=== PATIENT | male | born 1950 | race Caucasian/White ===

== ENCOUNTER 2021-10-21 21:39 | Inpatient (IN) | payer MEDICARE, OTHER ==
[2021-10-21 22:26] LABS: #Eosinphils 0.1 thou/uL (0.0-0.7); #Lymphocytes 0.6 thou/uL (1.20-3.40); #Monocytes 0.4 thou/uL (0.11-0.59); #Neutrophils 3.5 thou/uL (1.40-6.50); %Basophils 0.9 % (0.0-1.0); %Eosinophils 2.9 % (0.0-10.0); %Monocytes 8.4 % (0.0-10.0); %Neutrophils 74.8 % (42.0-75.0); Mean Corpuscular HGB CONC 35.3 g/dL (32.0-36.0); Mean Corpuscular Hemoglobin 34.1 pg (27.0-31.0); Mean Corpuscular Volume 96.5 fL (78.0-98.0); Platelet Count 153 thou/uL (130-400); RBC Distribution Width 12.2 % (11.5-14.5); Red Blood Cell (RBC) Count 1.76 mill/uL (4.70-6.10); White Blood Cell (WBC) Count 4.6 thou/uL (4.8-10.8)
[2021-10-21 22:40] LABS: ALT (SGPT) 7 U/L (8-55); AST (SGOT) 3 U/L (5-34); Albumin 4.1 g/dL (3.4-4.8); Alkaline Phosphatase 44 U/L (40-110); Anion Gap 26 mmol/L (10-20); Bilirubin, Total 0.4 mg/dL (0.2-1.2); Calc. Creatinine Clearance 0 mL/min (70-130); Calcium 6.9 mg/dL (7.8-10.44); Carbon Dioxide 11 mmol/L (23-31); Chloride 105 mmol/L (98-107); Globulin 3.6 g/dL (2.4-3.5); Glucose 134 mg/dL (83-110); Lipase 196 U/L (8-78); Potassium 4.5 mmol/L (3.5-5.1); Protein, Total 7.7 g/dL (5.8-8.1); Sodium 137 mmol/L (136-145)
[2021-10-21 22:54] LABS: BUN (Urea Nitrogen) 172 mg/dL (8.4-25.7)
[2021-10-21] MEDS ORDERED: Ondansetron PF 4 MG/2 ML Vial ONE (23:26)
[2021-10-22 00:22] LABS: Bilirubin Negative (Negative); Blood, Urine 1+ (Negative); Clarity Clear (Clear); Glucose, Urine (Dipstick) Normal (Negative); Ketone, Urine Negative (Negative); Leukocyte 500 Leu/uL (Negative); Nitrite Negative (Negative); Protein, Urine (Dipstick) 20 mg/dL (Neg-Trace); Specific Gravity, Urine 1.011 (1.002-1.036); Squamous Epithelial None Seen HPF (0-3); Urobilinogen Normal mg/dL (Less than 2); WBC/HPF Greater than 50 HPF (0-3)
[2021-10-22 00:24] LABS: Bacteria/HPF Rare-Few HPF (None Seen)
[2021-10-22] MEDS ORDERED: Acetaminophen 650 MG Suppository PR PRN (01:03)
[2021-10-22] MEDS ORDERED: Ondansetron PF 4 MG/2 ML Vial IVP PRN (01:03)
[2021-10-22] MEDS ORDERED: Ondansetron ODT 4 MG TAB PO PRN (01:03)
[2021-10-22 02:10] VITALS: BMI 19.6
[2021-10-22 03:58] LABS: #Eosinphils 0.2 thou/uL (0.0-0.7); #Lymphocytes 0.7 thou/uL (1.20-3.40); #Monocytes 0.4 thou/uL (0.11-0.59); #Neutrophils 3.2 thou/uL (1.40-6.50); %Basophils 0.7 % (0.0-1.0); %Eosinophils 5.4 % (0.0-10.0); %Lymphocytes 16.2 % (21.0-51.0); %Monocytes 9.1 % (0.0-10.0); %Neutrophils 68.5 % (42.0-75.0); Hemoglobin 7.8 g/dL (14.0-18.0); Mean Corpuscular HGB CONC 33.9 g/dL (32.0-36.0); Mean Corpuscular Hemoglobin 32.5 pg (27.0-31.0); Mean Platelet Volume 8.4 fL (7.4-10.4); Platelet Count 161 thou/uL (130-400); RBC Distribution Width 12.1 % (11.5-14.5); Red Blood Cell (RBC) Count 2.39 mill/uL (4.70-6.10); White Blood Cell (WBC) Count 4.6 thou/uL (4.8-10.8)
[2021-10-22 04:16] LABS: Anion Gap 25 mmol/L (10-20); Calc. Creatinine Clearance 4 mL/min (70-130); Calcium 6.7 mg/dL (7.8-10.44); Carbon Dioxide 11 mmol/L (23-31); Chloride 109 mmol/L (98-107); Glucose 95 mg/dL (83-110); Potassium 4.9 mmol/L (3.5-5.1); Sodium 140 mmol/L (136-145)
[2021-10-22 04:29] LABS: BUN (Urea Nitrogen) 158 mg/dL (8.4-25.7)
[2021-10-22] MEDS: cefTRIAXone\\ROCEPHIN 1 GM in Sodium Chloride 0.9% 100 ML IVPB SCH (06:07)
[2021-10-22] MEDS ORDERED: Epoetin (ESRD) 20,000 UNITS/ML SC SCH (08:45)
[2021-10-22] MEDS ORDERED: Heparin 5,000 UNITS/ML VIAL SC SCH (09:00)
[2021-10-22] MEDS: Sodium Bicarbonate 150 MEQ in Dextrose 5% in Water 1,000 ML IV SCH ×2 (11:50→23:30)
[2021-10-22] MEDS ORDERED: EPOETIN ALFA-EPBX (ESRD) 10,000 UNIT/ML VIAL SC SCH (12:00)
[2021-10-22] MEDS: EPOETIN ALFA-EPBX (ESRD) 40,000 UNIT/ML VIAL SC SCH (12:14)
[2021-10-22 15:03] LABS: SARS-CoV-2 PCR by NAA DETECTED (NotDetected)
[2021-10-22] MEDS: Ferrous Sulfate 325 MG TAB PO SCH (16:27)
[2021-10-22] MEDS: Cyanocobalamin (Vitamin B-12) 1,000 MCG TAB PO SCH (22:32)
[2021-10-22] MEDS: Folic Acid 1 MG TAB PO SCH (22:32)
[2021-10-22] MEDS: Tamsulosin HCl 0.4 MG CAP PO SCH (22:32)
[2021-10-23 04:40] LABS: Anion Gap 22 mmol/L (10-20); Calc. Creatinine Clearance 5 mL/min (70-130); Calcium 6.2 mg/dL (7.8-10.44); Carbon Dioxide 16 mmol/L (23-31); Chloride 101 mmol/L (98-107); Glucose 111 mg/dL (83-110); Potassium 4.1 mmol/L (3.5-5.1); Sodium 135 mmol/L (136-145)
[2021-10-23 04:51] LABS: #Eosinphils 0.2 thou/uL (0.0-0.7); #Lymphocytes 0.8 thou/uL (1.20-3.40); #Monocytes 0.3 thou/uL (0.11-0.59); #Neutrophils 3.2 thou/uL (1.40-6.50); %Basophils 1.1 % (0.0-1.0); %Eosinophils 3.7 % (0.0-10.0); %Lymphocytes 17.1 % (21.0-51.0); %Neutrophils 71.2 % (42.0-75.0); Hemoglobin 7.7 g/dL (14.0-18.0); Mean Corpuscular HGB CONC 35.1 g/dL (32.0-36.0); Mean Corpuscular Hemoglobin 33.4 pg (27.0-31.0); Mean Corpuscular Volume 95.2 fL (78.0-98.0); Mean Platelet Volume 8.3 fL (7.4-10.4); Platelet Count 152 thou/uL (130-400); RBC Distribution Width 12.7 % (11.5-14.5); Red Blood Cell (RBC) Count 2.32 mill/uL (4.70-6.10); White Blood Cell (WBC) Count 4.5 thou/uL (4.8-10.8)
[2021-10-23 04:53] LABS: BUN (Urea Nitrogen) 144 mg/dL (8.4-25.7)
[2021-10-23] MEDS: cefTRIAXone\\ROCEPHIN 1 GM in Sodium Chloride 0.9% 100 ML IVPB SCH (06:04)
[2021-10-23] MEDS: Sodium Bicarbonate 150 MEQ in Dextrose 5% in Water 1,000 ML IV SCH ×3 (06:04→19:51)
[2021-10-23] MEDS: Ferrous Sulfate 325 MG TAB PO SCH ×2 (09:18→17:07)
[2021-10-23] MEDS: Finasteride 5 MG TAB PO SCH (09:18)
[2021-10-23] MEDS: Tamsulosin HCl 0.4 MG CAP PO SCH (19:50)
[2021-10-23] MEDS: Folic Acid 1 MG TAB PO SCH (19:50)
[2021-10-23] MEDS: Cyanocobalamin (Vitamin B-12) 1,000 MCG TAB PO SCH (19:50)
[2021-10-24] MEDS: Sodium Bicarbonate 150 MEQ in Dextrose 5% in Water 1,000 ML IV SCH ×3 (04:26→23:27)
[2021-10-24] MEDS: cefTRIAXone\\ROCEPHIN 1 GM in Sodium Chloride 0.9% 100 ML IVPB SCH (06:05)
[2021-10-24 06:12] LABS: Reticulocyte Count 3.7 % (0.5-1.5)
[2021-10-24 06:22] LABS: Anion Gap 21 mmol/L (10-20); Calc. Creatinine Clearance 5 mL/min (70-130); Carbon Dioxide 27 mmol/L (23-31); Chloride 91 mmol/L (98-107); Glucose 119 mg/dL (83-110); Potassium 3.4 mmol/L (3.5-5.1); Sodium 136 mmol/L (136-145)
[2021-10-24 06:33] LABS: BUN (Urea Nitrogen) 119 mg/dL (8.4-25.7)
[2021-10-24] MEDS: Finasteride 5 MG TAB PO SCH (07:58)
[2021-10-24] MEDS: Ferrous Sulfate 325 MG TAB PO SCH ×2 (07:58→15:47)
[2021-10-24] MEDS: Acetaminophen 325 MG TAB PO PRN (20:41)
[2021-10-24] MEDS: Tamsulosin HCl 0.4 MG CAP PO SCH (20:41)
[2021-10-24] MEDS: Folic Acid 1 MG TAB PO SCH (20:41)
[2021-10-24] MEDS: Senokot S 8.6-50 MG TAB PO SCH (20:41)
[2021-10-24] MEDS: Cyanocobalamin (Vitamin B-12) 1,000 MCG TAB PO SCH (20:41)
[2021-10-25] MEDS: cefTRIAXone\\ROCEPHIN 1 GM in Sodium Chloride 0.9% 100 ML IVPB SCH (05:28)
[2021-10-25 06:15] LABS: #Eosinphils 0.2 thou/uL (0.0-0.7); #Lymphocytes 0.8 thou/uL (1.20-3.40); #Monocytes 0.5 thou/uL (0.11-0.59); #Neutrophils 3.7 thou/uL (1.40-6.50); %Basophils 0.7 % (0.0-1.0); %Eosinophils 3.6 % (0.0-10.0); %Lymphocytes 15.2 % (21.0-51.0); %Monocytes 9.9 % (0.0-10.0); %Neutrophils 70.5 % (42.0-75.0); Hemoglobin 7.9 g/dL (14.0-18.0); Mean Corpuscular HGB CONC 36.3 g/dL (32.0-36.0); Mean Corpuscular Hemoglobin 34.3 pg (27.0-31.0); Mean Corpuscular Volume 94.6 fL (78.0-98.0); Mean Platelet Volume 7.9 fL (7.4-10.4); Platelet Count 147 thou/uL (130-400); RBC Distribution Width 12.3 % (11.5-14.5); Red Blood Cell (RBC) Count 2.31 mill/uL (4.70-6.10); White Blood Cell (WBC) Count 5.2 thou/uL (4.8-10.8)
[2021-10-25 06:36] LABS: Anion Gap 18 mmol/L (10-20); BUN (Urea Nitrogen) 125 mg/dL (8.4-25.7); Calc. Creatinine Clearance 5 mL/min (70-130); Carbon Dioxide 35 mmol/L (23-31); Chloride 85 mmol/L (98-107); Glucose 133 mg/dL (83-110); Potassium 3.3 mmol/L (3.5-5.1); Sodium 135 mmol/L (136-145)
[2021-10-25 06:43] LABS: Calcium 5.8 mg/dL (7.8-10.44)
[2021-10-25] MEDS ORDERED: Calcium Gluconate 4.6 MEQ in Sodium Chloride 0.9% 100 ML IVPB SCH (08:00)
[2021-10-25] MEDS: Ferrous Sulfate 325 MG TAB PO SCH ×3 (08:10→15:34)
[2021-10-25] MEDS: Finasteride 5 MG TAB PO SCH (08:10)
[2021-10-25] MEDS: Saccharomyces boulardii 250 MG CAP PO SCH (08:10)
[2021-10-25] MEDS: Senokot S 8.6-50 MG TAB PO SCH ×2 (08:10→20:30)
[2021-10-25] MEDS: Multivitamin W/ Minerals 1 TAB PO SCH (08:10)
[2021-10-25] MEDS ORDERED: Polyethylene Glycol 3350 17 GM Packet PO SCH (09:00)
[2021-10-25] MEDS: Sodium Bicarbonate 150 MEQ in Dextrose 5% in Water 1,000 ML IV SCH (09:11)
[2021-10-25 11:07] LABS: Phosphorus 6.7 mg/dL (2.3-4.7)
[2021-10-25] MEDS: Tamsulosin HCl 0.4 MG CAP PO SCH (20:30)
[2021-10-25] MEDS: Cyanocobalamin (Vitamin B-12) 1,000 MCG TAB PO SCH (20:30)
[2021-10-25] MEDS: Acetaminophen 325 MG TAB PO PRN (20:30)
[2021-10-25] MEDS: Folic Acid 1 MG TAB PO SCH (20:30)
[2021-10-26 05:17] LABS: #Eosinphils 0.2 thou/uL (0.0-0.7); #Lymphocytes 0.8 thou/uL (1.20-3.40); #Monocytes 0.5 thou/uL (0.11-0.59); #Neutrophils 3.4 thou/uL (1.40-6.50); %Basophils 0.7 % (0.0-1.0); %Monocytes 10.6 % (0.0-10.0); %Neutrophils 68.8 % (42.0-75.0); Hemoglobin 7.9 g/dL (14.0-18.0); Mean Corpuscular HGB CONC 34.6 g/dL (32.0-36.0); Mean Corpuscular Hemoglobin 33.5 pg (27.0-31.0); Mean Corpuscular Volume 96.8 fL (78.0-98.0); Mean Platelet Volume 8.1 fL (7.4-10.4); Platelet Count 147 thou/uL (130-400); Red Blood Cell (RBC) Count 2.35 mill/uL (4.70-6.10)
[2021-10-26 05:31] LABS: Anion Gap 23 mmol/L (10-20); BUN (Urea Nitrogen) 119 mg/dL (8.4-25.7); Calc. Creatinine Clearance 5 mL/min (70-130); Carbon Dioxide 31 mmol/L (23-31); Chloride 85 mmol/L (98-107); Glucose 114 mg/dL (83-110); Potassium 3.5 mmol/L (3.5-5.1); Sodium 135 mmol/L (136-145)
[2021-10-26 05:35] LABS: Calcium 5.8 mg/dL (7.8-10.44)
[2021-10-26] MEDS: cefTRIAXone\\ROCEPHIN 1 GM in Sodium Chloride 0.9% 100 ML IVPB SCH (05:51)
[2021-10-26] MEDS ORDERED: Calcium Gluc 4.6 MEQ/10 ML (100 MG/ML) SLOW IVP SCH (06:00)
[2021-10-26] MEDS ORDERED: CALCIUM GLUC 1GM/NS 50ML 1 GM in Premix Bag 1 BAG IVPB SCH (07:00)
[2021-10-26] MEDS: Multivitamin W/ Minerals 1 TAB PO SCH (08:47)
[2021-10-26] MEDS: Saccharomyces boulardii 250 MG CAP PO SCH (08:47)
[2021-10-26] MEDS: Finasteride 5 MG TAB PO SCH (08:47)
[2021-10-26] MEDS: Ferrous Sulfate 325 MG TAB PO SCH ×2 (08:47→17:20)
[2021-10-26] MEDS: Calcium Carbonate 500 MG ChewTAB PO SCH ×3 (08:47→21:14)
[2021-10-26] MEDS: Senokot S 8.6-50 MG TAB PO SCH ×2 (08:48→21:15)
[2021-10-26] MEDS: Sodium Chloride 0.9% 1,000 ML IV SCH ×2 (09:51→21:33)
[2021-10-26 11:45] LABS: SARS-CoV-2 IgG Spike Ab Interp Reactive (NonReactive); SARS-CoV-2 IgG Spike Conc/Indx 2353.9 AU/mL (0.00-50.0)
[2021-10-26] MEDS ORDERED: Sevelamer Carbonate 800 MG TAB PO SCH (12:00)
[2021-10-26] MEDS: Calcium Acetate 667 MG CAP PO SCH ×3 (12:47→17:24)
[2021-10-26] MEDS: Folic Acid 1 MG TAB PO SCH (21:15)
[2021-10-26] MEDS: Cyanocobalamin (Vitamin B-12) 1,000 MCG TAB PO SCH (21:15)
[2021-10-26] MEDS: Tamsulosin HCl 0.4 MG CAP PO SCH (21:15)
[2021-10-27] MEDS: cefTRIAXone\\ROCEPHIN 1 GM in Sodium Chloride 0.9% 100 ML IVPB SCH (06:07)
[2021-10-27 07:51] LABS: #Eosinphils 0.2 thou/uL (0.0-0.7); #Lymphocytes 0.6 thou/uL (1.20-3.40); #Monocytes 0.5 thou/uL (0.11-0.59); #Neutrophils 2.9 thou/uL (1.40-6.50); %Basophils 0.8 % (0.0-1.0); %Eosinophils 5.5 % (0.0-10.0); %Lymphocytes 13.6 % (21.0-51.0); %Monocytes 11.1 % (0.0-10.0); %Neutrophils 68.9 % (42.0-75.0); Hemoglobin 7.6 g/dL (14.0-18.0); Mean Corpuscular HGB CONC 33.8 g/dL (32.0-36.0); Mean Corpuscular Hemoglobin 32.9 pg (27.0-31.0); Mean Corpuscular Volume 97.3 fL (78.0-98.0); Mean Platelet Volume 8.4 fL (7.4-10.4); Platelet Count 157 thou/uL (130-400); RBC Distribution Width 12.3 % (11.5-14.5); White Blood Cell (WBC) Count 4.1 thou/uL (4.8-10.8)
[2021-10-27 08:06] LABS: Anion Gap 21 mmol/L (10-20); BUN (Urea Nitrogen) 110 mg/dL (8.4-25.7); Calc. Creatinine Clearance 6 mL/min (70-130); Carbon Dioxide 27 mmol/L (23-31); Chloride 93 mmol/L (98-107); Glucose 101 mg/dL (83-110); Potassium 3.5 mmol/L (3.5-5.1); Sodium 137 mmol/L (136-145)
[2021-10-27] MEDS: Sodium Chloride 0.9% 1,000 ML IV SCH ×3 (08:39→20:08)
[2021-10-27] MEDS: Multivitamin W/ Minerals 1 TAB PO SCH (08:40)
[2021-10-27] MEDS: Finasteride 5 MG TAB PO SCH (08:40)
[2021-10-27] MEDS: Calcium Acetate 667 MG CAP PO SCH ×3 (08:40→16:31)
[2021-10-27] MEDS: Calcium Carbonate 500 MG ChewTAB PO SCH ×3 (08:40→20:11)
[2021-10-27] MEDS: Calcitriol 0.25 MCG CAP PO SCH (08:40)
[2021-10-27] MEDS: Ferrous Sulfate 325 MG TAB PO SCH ×2 (08:40→16:31)
[2021-10-27] MEDS: Senokot S 8.6-50 MG TAB PO SCH ×2 (08:40→20:10)
[2021-10-27] MEDS: Saccharomyces boulardii 250 MG CAP PO SCH (08:40)
[2021-10-27] MEDS: Tamsulosin HCl 0.4 MG CAP PO SCH (20:10)
[2021-10-27] MEDS: Folic Acid 1 MG TAB PO SCH (20:10)
[2021-10-27] MEDS: Cyanocobalamin (Vitamin B-12) 1,000 MCG TAB PO SCH (20:10)
[2021-10-28] MEDS: cefTRIAXone\\ROCEPHIN 1 GM in Sodium Chloride 0.9% 100 ML IVPB SCH (05:57)
[2021-10-28 06:25] LABS: #Basophils 0.1 thou/uL (0.0-0.2); #Eosinphils 0.4 thou/uL (0.0-0.7); #Lymphocytes 0.9 thou/uL (1.20-3.40); #Monocytes 0.5 thou/uL (0.11-0.59); #Neutrophils 2.9 thou/uL (1.40-6.50); %Basophils 1.6 % (0.0-1.0); %Eosinophils 7.7 % (0.0-10.0); %Lymphocytes 18.2 % (21.0-51.0); %Monocytes 11.3 % (0.0-10.0); %Neutrophils 61.2 % (42.0-75.0); Hemoglobin 7.6 g/dL (14.0-18.0); Mean Corpuscular HGB CONC 34.1 g/dL (32.0-36.0); Mean Corpuscular Hemoglobin 33.2 pg (27.0-31.0); Mean Corpuscular Volume 97.5 fL (78.0-98.0); Mean Platelet Volume 8.2 fL (7.4-10.4); Platelet Count 159 thou/uL (130-400); RBC Distribution Width 12.3 % (11.5-14.5); Red Blood Cell (RBC) Count 2.29 mill/uL (4.70-6.10); White Blood Cell (WBC) Count 4.7 thou/uL (4.8-10.8)
[2021-10-28 06:45] LABS: Anion Gap 18 mmol/L (10-20); BUN (Urea Nitrogen) 102 mg/dL (8.4-25.7); CRP (Inflammatory) Less than 0.50 mg/dL (= or < 0.5); Calc. Creatinine Clearance 6 mL/min (70-130); Calcium 6.4 mg/dL (7.8-10.44); Carbon Dioxide 27 mmol/L (23-31); Chloride 97 mmol/L (98-107); Glucose 98 mg/dL (83-110); Potassium 3.9 mmol/L (3.5-5.1); Sodium 138 mmol/L (136-145)
[2021-10-28] MEDS: Finasteride 5 MG TAB PO SCH (07:59)
[2021-10-28] MEDS: Calcitriol 0.25 MCG CAP PO SCH (07:59)
[2021-10-28] MEDS: Calcium Acetate 667 MG CAP PO SCH ×3 (07:59→17:45)
[2021-10-28] MEDS: Calcium Carbonate 500 MG ChewTAB PO SCH ×3 (07:59→20:26)
[2021-10-28] MEDS: Saccharomyces boulardii 250 MG CAP PO SCH (07:59)
[2021-10-28] MEDS: Ferrous Sulfate 325 MG TAB PO SCH ×2 (07:59→17:45)
[2021-10-28] MEDS: Senokot S 8.6-50 MG TAB PO SCH ×2 (07:59→20:25)
[2021-10-28] MEDS: Multivitamin W/ Minerals 1 TAB PO SCH (07:59)
[2021-10-28] MEDS: Sodium Chloride 0.9% 1,000 ML IV SCH ×2 (11:38→20:23)
[2021-10-28] MEDS: Tamsulosin HCl 0.4 MG CAP PO SCH (20:25)
[2021-10-28] MEDS: Folic Acid 1 MG TAB PO SCH (20:25)
[2021-10-28] MEDS: Cyanocobalamin (Vitamin B-12) 1,000 MCG TAB PO SCH (20:26)
[2021-10-29] MEDS: Sodium Chloride 0.9% 1,000 ML IV SCH ×2 (05:30→18:22)
[2021-10-29] MEDS: cefTRIAXone\\ROCEPHIN 1 GM in Sodium Chloride 0.9% 100 ML IVPB SCH (05:31)
[2021-10-29 07:04] LABS: #Basophils 0.1 thou/uL (0.0-0.2); #Eosinphils 0.3 thou/uL (0.0-0.7); #Lymphocytes 0.6 thou/uL (1.20-3.40); #Monocytes 0.4 thou/uL (0.11-0.59); #Neutrophils 2.9 thou/uL (1.40-6.50); %Basophils 1.6 % (0.0-1.0); %Eosinophils 6.1 % (0.0-10.0); %Lymphocytes 14.8 % (21.0-51.0); %Monocytes 10.3 % (0.0-10.0); %Neutrophils 67.2 % (42.0-75.0); Hemoglobin 7.2 g/dL (14.0-18.0); Mean Corpuscular Hemoglobin 33.4 pg (27.0-31.0); Mean Corpuscular Volume 98.3 fL (78.0-98.0); Platelet Count 145 thou/uL (130-400); RBC Distribution Width 12.5 % (11.5-14.5); Red Blood Cell (RBC) Count 2.15 mill/uL (4.70-6.10); White Blood Cell (WBC) Count 4.3 thou/uL (4.8-10.8)
[2021-10-29 07:25] LABS: Anion Gap 17 mmol/L (10-20); BUN (Urea Nitrogen) 97 mg/dL (8.4-25.7); Calc. Creatinine Clearance 6 mL/min (70-130); Calcium 6.1 mg/dL (7.8-10.44); Carbon Dioxide 24 mmol/L (23-31); Chloride 99 mmol/L (98-107); Glucose 92 mg/dL (83-110); Sodium 136 mmol/L (136-145)
[2021-10-29] MEDS: Saccharomyces boulardii 250 MG CAP PO SCH (08:25)
[2021-10-29] MEDS: Calcitriol 0.25 MCG CAP PO SCH (08:25)
[2021-10-29] MEDS: Multivitamin W/ Minerals 1 TAB PO SCH (08:25)
[2021-10-29] MEDS: Ferrous Sulfate 325 MG TAB PO SCH ×2 (08:26→17:18)
[2021-10-29] MEDS: Calcium Acetate 667 MG CAP PO SCH ×3 (08:26→17:17)
[2021-10-29] MEDS: Finasteride 5 MG TAB PO SCH (08:26)
[2021-10-29] MEDS: Senokot S 8.6-50 MG TAB PO SCH ×2 (08:26→20:41)
[2021-10-29] MEDS: Calcium Carbonate 500 MG ChewTAB PO SCH ×3 (08:26→20:41)
[2021-10-29] MEDS: EPOETIN ALFA-EPBX (ESRD) 40,000 UNIT/ML VIAL SC SCH (14:09)
[2021-10-29] MEDS ORDERED: Epoetin (ESRD) 10,000 UNITS/ML VIAL SC SCH (14:15)
[2021-10-29] MEDS: Calcium Carbonate 600 MG + Vit D TAB PO SCH (17:18)
[2021-10-29] MEDS: Tamsulosin HCl 0.4 MG CAP PO SCH (20:41)
[2021-10-29] MEDS: Cyanocobalamin (Vitamin B-12) 1,000 MCG TAB PO SCH (20:41)
[2021-10-29] MEDS: Folic Acid 1 MG TAB PO SCH (20:41)
[2021-10-30] MEDS: Sodium Chloride 0.9% 1,000 ML IV SCH ×3 (03:59→23:40)
[2021-10-30 06:11] LABS: #Basophils 0.1 thou/uL (0.0-0.2); #Eosinphils 0.3 thou/uL (0.0-0.7); #Lymphocytes 0.7 thou/uL (1.20-3.40); #Monocytes 0.6 thou/uL (0.11-0.59); %Basophils 1.5 % (0.0-1.0); %Eosinophils 6.9 % (0.0-10.0); %Lymphocytes 14.9 % (21.0-51.0); %Monocytes 12.5 % (0.0-10.0); %Neutrophils 64.2 % (42.0-75.0); Hemoglobin 8.1 g/dL (14.0-18.0); Mean Corpuscular HGB CONC 34.3 g/dL (32.0-36.0); Mean Corpuscular Hemoglobin 33.2 pg (27.0-31.0); Mean Corpuscular Volume 96.9 fL (78.0-98.0); Mean Platelet Volume 7.8 fL (7.4-10.4); Platelet Count 138 thou/uL (130-400); RBC Distribution Width 12.9 % (11.5-14.5); Red Blood Cell (RBC) Count 2.42 mill/uL (4.70-6.10); White Blood Cell (WBC) Count 4.7 thou/uL (4.8-10.8)
[2021-10-30 06:31] LABS: Anion Gap 17 mmol/L (10-20); BUN (Urea Nitrogen) 99 mg/dL (8.4-25.7); Calc. Creatinine Clearance 7 mL/min (70-130); Calcium 6.3 mg/dL (7.8-10.44); Carbon Dioxide 21 mmol/L (23-31); Chloride 101 mmol/L (98-107); Glucose 91 mg/dL (83-110); Potassium 4.1 mmol/L (3.5-5.1); Sodium 135 mmol/L (136-145)
[2021-10-30] MEDS: Calcium Carbonate 500 MG ChewTAB PO SCH ×3 (09:31→20:39)
[2021-10-30] MEDS: Cholecalciferol 1,000 UNITS (25 MCG) TAB PO SCH (09:32)
[2021-10-30] MEDS: Finasteride 5 MG TAB PO SCH (09:33)
[2021-10-30] MEDS: Senokot S 8.6-50 MG TAB PO SCH ×2 (09:34→20:40)
[2021-10-30] MEDS: Calcitriol 0.25 MCG CAP PO SCH (09:34)
[2021-10-30] MEDS: Multivitamin W/ Minerals 1 TAB PO SCH (09:34)
[2021-10-30] MEDS: Saccharomyces boulardii 250 MG CAP PO SCH (09:34)
[2021-10-30] MEDS: Calcium Acetate 667 MG CAP PO SCH ×3 (09:34→17:04)
[2021-10-30] MEDS ORDERED: GoLYTELY 4,000 ml Bottle PO SCH (18:00)
[2021-10-30] MEDS: Tamsulosin HCl 0.4 MG CAP PO SCH (20:39)
[2021-10-30] MEDS: Cyanocobalamin (Vitamin B-12) 1,000 MCG TAB PO SCH (20:39)
[2021-10-30] MEDS: Folic Acid 1 MG TAB PO SCH (20:39)
[2021-10-30] MEDS: Calcium Carbonate 600 MG + Vit D TAB PO SCH (23:24)
[2021-10-31 05:58] LABS: #Basophils 0.1 thou/uL (0.0-0.2); #Eosinphils 0.3 thou/uL (0.0-0.7); #Lymphocytes 0.6 thou/uL (1.20-3.40); #Monocytes 0.4 thou/uL (0.11-0.59); #Neutrophils 2.3 thou/uL (1.40-6.50); %Basophils 1.8 % (0.0-1.0); %Eosinophils 7.4 % (0.0-10.0); %Lymphocytes 16.4 % (21.0-51.0); %Monocytes 11.6 % (0.0-10.0); %Neutrophils 62.8 % (42.0-75.0); Hemoglobin 9.1 g/dL (14.0-18.0); Mean Corpuscular HGB CONC 33.9 g/dL (32.0-36.0); Mean Corpuscular Hemoglobin 33.3 pg (27.0-31.0); Mean Corpuscular Volume 98.2 fL (78.0-98.0); Mean Platelet Volume 7.7 fL (7.4-10.4); Platelet Count 155 thou/uL (130-400); RBC Distribution Width 13.3 % (11.5-14.5); Red Blood Cell (RBC) Count 2.73 mill/uL (4.70-6.10); White Blood Cell (WBC) Count 3.6 thou/uL (4.8-10.8)
[2021-10-31 06:18] LABS: Anion Gap 17 mmol/L (10-20); BUN (Urea Nitrogen) 84 mg/dL (8.4-25.7); Calc. Creatinine Clearance 7 mL/min (70-130); Calcium 7.2 mg/dL (7.8-10.44); Carbon Dioxide 22 mmol/L (23-31); Chloride 102 mmol/L (98-107); Glucose 91 mg/dL (83-110); Iron 40 ug/dL (65-175); Iron Binding Capacity, Total 218 mcg/dL (261-462); Potassium 4.3 mmol/L (3.5-5.1); Sodium 137 mmol/L (136-145)
[2021-10-31] MEDS: Senokot S 8.6-50 MG TAB PO SCH ×2 (07:14→21:43)
[2021-10-31] MEDS: Calcium Acetate 667 MG CAP PO SCH ×3 (07:50→17:56)
[2021-10-31] MEDS: Calcium Carbonate 500 MG ChewTAB PO SCH ×3 (07:50→21:43)
[2021-10-31] MEDS ORDERED: PROPOFOL 200 MG/20 ML VIAL ONE (11:19)
[2021-10-31] MEDS: Saccharomyces boulardii 250 MG CAP PO SCH (13:57)
[2021-10-31] MEDS: Multivitamin W/ Minerals 1 TAB PO SCH (13:58)
[2021-10-31] MEDS: Cholecalciferol 1,000 UNITS (25 MCG) TAB PO SCH (13:58)
[2021-10-31] MEDS: Finasteride 5 MG TAB PO SCH (13:59)
[2021-10-31] MEDS: Calcitriol 0.25 MCG CAP PO SCH (14:00)
[2021-10-31] MEDS: Sodium Chloride 0.9% 1,000 ML IV SCH (15:58)
[2021-10-31] MEDS: Cyanocobalamin (Vitamin B-12) 1,000 MCG TAB PO SCH (21:43)
[2021-10-31] MEDS: Folic Acid 1 MG TAB PO SCH (21:43)
[2021-10-31] MEDS: Tamsulosin HCl 0.4 MG CAP PO SCH (21:55)
[2021-11-01 06:24] LABS: #Eosinphils 0.2 thou/uL (0.0-0.7); #Lymphocytes 0.7 thou/uL (1.20-3.40); #Monocytes 0.5 thou/uL (0.11-0.59); #Neutrophils 4.1 thou/uL (1.40-6.50); %Basophils 0.8 % (0.0-1.0); %Eosinophils 3.9 % (0.0-10.0); %Lymphocytes 12.9 % (21.0-51.0); %Monocytes 9.6 % (0.0-10.0); %Neutrophils 72.8 % (42.0-75.0); Hemoglobin 8.1 g/dL (14.0-18.0); Mean Corpuscular HGB CONC 33.4 g/dL (32.0-36.0); Mean Corpuscular Volume 98.8 fL (78.0-98.0); Mean Platelet Volume 7.8 fL (7.4-10.4); Platelet Count 136 thou/uL (130-400); RBC Distribution Width 13.3 % (11.5-14.5); Red Blood Cell (RBC) Count 2.47 mill/uL (4.70-6.10); White Blood Cell (WBC) Count 5.6 thou/uL (4.8-10.8)
[2021-11-01 06:46] LABS: Anion Gap 15 mmol/L (10-20); BUN (Urea Nitrogen) 76 mg/dL (8.4-25.7); Calc. Creatinine Clearance 7 mL/min (70-130); Calcium 6.9 mg/dL (7.8-10.44); Carbon Dioxide 22 mmol/L (23-31); Chloride 104 mmol/L (98-107); Glucose 90 mg/dL (83-110); Potassium 4.5 mmol/L (3.5-5.1); Sodium 136 mmol/L (136-145)
[2021-11-01] MEDS: Calcium Carbonate 500 MG ChewTAB PO SCH ×3 (09:25→19:41)
[2021-11-01] MEDS: Cholecalciferol 1,000 UNITS (25 MCG) TAB PO SCH (09:25)
[2021-11-01] MEDS: Finasteride 5 MG TAB PO SCH (09:26)
[2021-11-01] MEDS: Calcitriol 0.25 MCG CAP PO SCH (09:26)
[2021-11-01] MEDS: Saccharomyces boulardii 250 MG CAP PO SCH (09:26)
[2021-11-01] MEDS: Multivitamin W/ Minerals 1 TAB PO SCH (09:26)
[2021-11-01] MEDS: Calcium Acetate 667 MG CAP PO SCH ×3 (09:26→16:13)
[2021-11-01] MEDS: Senokot S 8.6-50 MG TAB PO SCH ×2 (09:27→19:42)
[2021-11-01] MEDS: Tamsulosin HCl 0.4 MG CAP PO SCH (19:42)
[2021-11-01] MEDS: Cyanocobalamin (Vitamin B-12) 1,000 MCG TAB PO SCH (19:42)
[2021-11-01] MEDS: Folic Acid 1 MG TAB PO SCH (19:42)
[2021-11-02 07:26] LABS: #Eosinphils 0.2 thou/uL (0.0-0.7); #Lymphocytes 0.8 thou/uL (1.20-3.40); #Monocytes 0.5 thou/uL (0.11-0.59); #Neutrophils 3.3 thou/uL (1.40-6.50); %Eosinophils 4.1 % (0.0-10.0); %Lymphocytes 16.9 % (21.0-51.0); %Monocytes 10.1 % (0.0-10.0); %Neutrophils 67.9 % (42.0-75.0); Mean Corpuscular HGB CONC 33.9 g/dL (32.0-36.0); Mean Corpuscular Hemoglobin 33.8 pg (27.0-31.0); Mean Corpuscular Volume 99.7 fL (78.0-98.0); Mean Platelet Volume 8.3 fL (7.4-10.4); Platelet Count 127 thou/uL (130-400); RBC Distribution Width 13.2 % (11.5-14.5); Red Blood Cell (RBC) Count 2.35 mill/uL (4.70-6.10); White Blood Cell (WBC) Count 4.8 thou/uL (4.8-10.8)
[2021-11-02 07:30] LABS: Anion Gap 17 mmol/L (10-20); BUN (Urea Nitrogen) 80 mg/dL (8.4-25.7); Calc. Creatinine Clearance 7 mL/min (70-130); Carbon Dioxide 21 mmol/L (23-31); Chloride 104 mmol/L (98-107); Glucose 92 mg/dL (83-110); Potassium 4.5 mmol/L (3.5-5.1); Sodium 137 mmol/L (136-145)
[2021-11-02] MEDS: Cholecalciferol 1,000 UNITS (25 MCG) TAB PO SCH (08:57)
[2021-11-02] MEDS: Calcium Carbonate 500 MG ChewTAB PO SCH ×3 (08:57→20:11)
[2021-11-02] MEDS: Calcium Acetate 667 MG CAP PO SCH ×3 (08:58→17:18)
[2021-11-02] MEDS: Finasteride 5 MG TAB PO SCH (08:58)
[2021-11-02] MEDS: Calcitriol 0.25 MCG CAP PO SCH (08:58)
[2021-11-02] MEDS: Multivitamin W/ Minerals 1 TAB PO SCH (08:58)
[2021-11-02] MEDS: Senokot S 8.6-50 MG TAB PO SCH ×2 (08:58→20:11)
[2021-11-02] MEDS: Saccharomyces boulardii 250 MG CAP PO SCH (08:58)
[2021-11-02] MEDS ORDERED: EPOETIN ALFA-EPBX (ESRD) 3,000 UNIT/ML VIAL SC SCH (10:45)
[2021-11-02] MEDS: Folic Acid 1 MG TAB PO SCH (20:11)
[2021-11-02] MEDS: Cyanocobalamin (Vitamin B-12) 1,000 MCG TAB PO SCH (20:11)
[2021-11-02] MEDS: Tamsulosin HCl 0.4 MG CAP PO SCH (20:11)
[2021-11-02 21:19] VITALS: TEMP 97.8
[2021-11-03 06:33] LABS: #Basophils 0.1 thou/uL (0.0-0.2); #Eosinphils 0.3 thou/uL (0.0-0.7); #Lymphocytes 0.8 thou/uL (1.20-3.40); #Monocytes 0.5 thou/uL (0.11-0.59); #Neutrophils 3.4 thou/uL (1.40-6.50); %Basophils 1.2 % (0.0-1.0); %Eosinophils 6.2 % (0.0-10.0); %Lymphocytes 16.3 % (21.0-51.0); %Monocytes 9.2 % (0.0-10.0); %Neutrophils 67.2 % (42.0-75.0); Mean Corpuscular HGB CONC 33.4 g/dL (32.0-36.0); Mean Corpuscular Hemoglobin 33.5 pg (27.0-31.0); Mean Platelet Volume 7.9 fL (7.4-10.4); Platelet Count 139 thou/uL (130-400); RBC Distribution Width 13.3 % (11.5-14.5); Red Blood Cell (RBC) Count 2.38 mill/uL (4.70-6.10); White Blood Cell (WBC) Count 5.1 thou/uL (4.8-10.8)
[2021-11-03 06:49] LABS: Anion Gap 16 mmol/L (10-20); BUN (Urea Nitrogen) 85 mg/dL (8.4-25.7); Calc. Creatinine Clearance 7 mL/min (70-130); Calcium 7.1 mg/dL (7.8-10.44); Carbon Dioxide 21 mmol/L (23-31); Chloride 104 mmol/L (98-107); Glucose 93 mg/dL (83-110); Potassium 4.4 mmol/L (3.5-5.1); Sodium 137 mmol/L (136-145)
[2021-11-03 07:41] VITALS: BP 157/77
[2021-11-03] MEDS: Calcium Carbonate 500 MG ChewTAB PO SCH (08:16)
[2021-11-03] MEDS: Saccharomyces boulardii 250 MG CAP PO SCH (08:17)
[2021-11-03] MEDS: Calcium Acetate 667 MG CAP PO SCH ×2 (08:17→11:51)
[2021-11-03] MEDS: Multivitamin W/ Minerals 1 TAB PO SCH (08:17)
[2021-11-03] MEDS: Finasteride 5 MG TAB PO SCH (08:17)
[2021-11-03] MEDS: Senokot S 8.6-50 MG TAB PO SCH (08:17)
[2021-11-03] MEDS: Calcitriol 0.25 MCG CAP PO SCH (08:17)
[2021-11-03] MEDS: Cholecalciferol 1,000 UNITS (25 MCG) TAB PO SCH (08:17)
[2021-11-05] MEDS ORDERED: EPOETIN ALFA-EPBX (ESRD) 10,000 UNIT/ML VIAL SC SCH (09:00)
== END 2021-11-03 13:20 | disposition home or self-care (01) | DRG 682 ==
LOC: ERS 21:39 → 2NO 22:44 → T4-B 10-23 18:52
PROVIDERS: ADMIT Student in an Organized Health Care Education/Training Program; ATTEND Internal Medicine
PROC: 8E0ZXY6 Isolation (ICD-10-PCS; 2021-10-22)
PROC: 30233N1 Transfusion of Nonautologous Red Blood Cells into Peripheral Vein, Percutaneous Approach (ICD-10-PCS; principal; 2021-10-29)
PROC: 0DB98ZX Excision of Duodenum, Via Natural or Artificial Opening Endoscopic, Diagnostic (ICD-10-PCS; 2021-10-31)
PROC: 0DBK8ZZ Excision of Ascending Colon, Via Natural or Artificial Opening Endoscopic (ICD-10-PCS; 2021-10-31)
PROC: 0DBH8ZZ Excision of Cecum, Via Natural or Artificial Opening Endoscopic (ICD-10-PCS; 2021-10-31)
PROC: 0DBP8ZZ Excision of Rectum, Via Natural or Artificial Opening Endoscopic (ICD-10-PCS; 2021-10-31)
DX: N17.9 Acute kidney failure, unspecified (principal); U07.1 COVID-19; N13.8 Other obstructive and reflux uropathy; E87.2 Acidosis; N18.6 End stage renal disease; D63.1 Anemia in chronic kidney disease; N13.0 Hydronephrosis with ureteropelvic junction obstruction; N40.1 Benign prostatic hyperplasia with lower urinary tract symptoms; R33.8 Other retention of urine; N25.81 Secondary hyperparathyroidism of renal origin; K31.819 Angiodysplasia of stomach and duodenum without bleeding; K29.80 Duodenitis without bleeding; K64.4 Residual hemorrhoidal skin tags; K57.30 Diverticulosis of large intestine without perforation or abscess without bleeding; K63.5 Polyp of colon; K62.1 Rectal polyp; I08.1 Rheumatic disorders of both mitral and tricuspid valves; E83.51 Hypocalcemia; E87.6 Hypokalemia; E83.39 Other disorders of phosphorus metabolism; E87.70 Fluid overload, unspecified; Z28.21 Immunization not carried out because of patient refusal; Z90.89 Acquired absence of other organs; Z98.890 Other specified postprocedural states; Z86.16 Personal history of COVID-19
CPT/HCPCS: 36415; 36430; 71045; 74176; 76770; 80048; 80053; 81003; 81015; 82274; 82306; 82728; 83540; 83550; 83690; 83970; 84100; 85025; 85046; 86140; 86769; 86850; 86900; 86901; 88305; 93306; 96374; J0610; J0696; J1644; J2405; J2704; J3490; J7050; J7070; P9016; Q0162; Q4081; Q5105; U0003; U0005

== ENCOUNTER 2022-10-22 14:49 | Outpatient (CLI) | payer MEDICARE | END 2022-10-22 14:50 | disposition home or self-care (01) | LOC: ULT 14:49 | PROVIDERS: ATTEND Urology | DX: R33.9 Retention of urine, unspecified (principal); N18.9 Chronic kidney disease, unspecified; N31.9 Neuromuscular dysfunction of bladder, unspecified; Z96.0 Presence of urogenital implants | CPT/HCPCS: 76770 ==